=== PATIENT | female | born 1975 | race Caucasian/White ===

== ENCOUNTER 2018-07-25 18:24 | Emergency (ER) | payer OTHER ==
--- OUTSIDE RECORDS SUMMARY | 2018-07-25 18:26 | XMS REPORT | Continuity of Care Document ---
:1975 Author Organization Interface Problems Problem Status Onset Classification Date Comments Source Date Reported SEZIURE Active [facility] [place] Medications Medication Details Route Status Patient Ordering Order Source Instructions Provider Date Allergies, Adverse Reactions, Alerts Substance Category Reaction Severity Reaction Status Date Comments Source type Reported Immunizations Immunization Date Given Site Status Last Updated Comments Source Results Order Results Value Reference Date Interpretation Comments Source Name Range Brain wo Brain wo EXAM: CT BRAIN WITHOUT CONTRAST 01/25 - [facility] contrast contrast /2017 - [place] CT CT DATE: 01/25/2018 3:04 PM CDT Read by: Luca Rhodes MD Dictated Date/time: 01/25/18 16:05 Electronically Signed by: Luca Rhodes MD 01/25/18 16:07 FINAL REPORT INDICATION: - Seizure, pineal cyst. ADDITIONAL INFORMATION: . COMPARISON: None. TECHNIQUE: Routine axial CT images of the brain were obtained. IV contrast: None. CT imaging performed at this location utilizes radiation dose optimization techniques which include one or more of the following: -Automated exposure control -Adjustment of the mA and/or kV according to patient size -Use of iterative reconstruction technique CT Radiation Dose DLP 899.37 mGy-cm FINDINGS: Non-contrast images of the head demonstrate no edema, hemorrhage, mass lesion or other acute intracranial abnormality. Mild diffuse cerebral and and more pronounced cerebellar atrophy. Barakat- white matter distinction is preserved. The ventricles are normal. The basal cisterns and sulci are normal in size. The paranasal sinuses, orbits and mastoids are unremarkable. IMPRESSION: 1. No definite acute infarct or intracranial hemorrhage detected. Dedicated MRI brain recommended for further evaluation if this is a new onset seizure. 2. Mild diffuse cerebral and more pronounced cerebellar atrophy. If there is further concern for intracranial pathology or acute stroke, MRI of the brain may be performed for complete assessment. SL: [id number] Vital Signs Vital Sign Value Date Comments Source Encounters Location Location Encounter Encounter Reason Attending ADM DC Status Source Details Type Number For Provider Date Date Visit Outpatient [id number] SUZETTE 11/05 Active [facility] [place] Outpatient [id number] [place] 01/23 Active [facility] [place] Outpatient [id number] SU[place] 01/23 Active [facility] [place] Outpatient [id number] [place] 01/24 Active [facility] [place] Outpatient [id number] [place] 04/04 Active [facility] [place] Outpatient [id number] SU[place]ET[place] 08/08 Active [facility] [place] Procedures Procedure Code Date Perfomer Comments Source
--- OUTSIDE RECORDS SUMMARY | 2018-07-25 18:26 | XMS REPORT ---
:1975 Author [facility] Address [address] [place] [address] Dr. Cook [address] [place] [id number] Care Team Providers Name Role Phone Unavailable Unavailable Unavailable Problems This patient has no known problems. Allergies, Adverse Reactions, Alerts This patient has no known allergies or adverse reactions. Medications This patient has no known medications.
[2018-07-25] MEDS ORDERED: IPRATROPIUM BROM 0.5MG/2.5ML ONE (19:42)
[2018-07-25] MEDS ORDERED: ALBUTEROL 2.5 MG/3 ML NEB SOL ONE (19:42)
--- NOTE | 2018-07-25 20:10 | EDPHYS ---
Physician Documentation [facility] Name: Gauri Juares Age: 42 yrs Sex: Female : 1975 Arrival Date: 07/25/2018 Time: 18:32 Bed 7 Private MD: ED Physician Kj Perez HPI: 07/25 19:25 This 42 yrs old Female presents to ER via Ambulatory with complaints of cp Cough, Chest Pain, Sore Throat, Sinus Pain. 19:25 The patient or guardian reports cough, that is intermittent, with no sputum. cp 19:25 Onset: The symptoms/episode began/occurred this morning. Associated signs and symptoms: cp Pertinent positives: chest pain, with cough, diarrhea, sore throat, Pertinent negatives: fever, vomiting. 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 - Social history:: Smoking status: Patient uses tobacco products, smokes one-half pack cigarettes per day. - Ebola Screening: : Patient negative for fever greater than or equal to 101.5 degrees Fahrenheit, and additional compatible Ebola Virus Disease symptoms Patient denies exposure to infectious person Patient denies travel to an Ebola-affected area in the 21 days before illness onset No symptoms or risks identified at this time. ROS: 19:30 Constitutional: Positive for body aches, Negative for fever, poor PO intake. cp 19:30 Eyes: Negative for injury, pain, redness, and discharge. cp 19:30 ENT: Positive for sore throat, Negative for drainage from ear(s), ear pain, difficulty swallowing, difficulty handling secretions. 19:30 Cardiovascular: Positive for chest pain, with cough. 19:30 Respiratory: Positive for cough, with no reported sputum. 19:30 Abdomen/GI: Positive for diarrhea, Negative for abdominal pain, vomiting, constipation. 19:30 Skin: Negative for rash. 19:30 Neuro: Negative for altered mental status, headache. 19:30 All other systems are negative. Exam: 19:40 Constitutional: The patient appears in no acute distress, alert, awake, non-toxic, well cp developed, well nourished. 19:40 Head/Face: Normocephalic, atraumatic. cp 19:40 Eyes: Periorbital structures: appear normal, Conjunctiva: normal, no exudate, no injection, Lids and lashes: appear normal, bilaterally. 19:40 ENT: External ear(s): are unremarkable, Ear canal(s): are normal, clear, TM's: bulging, is not appreciated, bilaterally, Nose: is normal, Mouth: Lips: moist, Oral mucosa: moist, Posterior pharynx: Airway: no evidence of obstruction, patent, Tonsils: no enlargement, no exudate, swelling, is not appreciated, erythema, that is mild, exudate, is not appreciated. 19:40 Neck: ROM/movement: is normal, is supple, without pain, no range of motions limitations, no meningismus, Lymph nodes: lymphadenopathy is appreciated, anterior cervical nodes. 19:40 Chest/axilla: Inspection: normal, Palpation: is normal, no crepitus, no tenderness. 19:40 Cardiovascular: Rate: normal, Rhythm: regular. 19:40 Respiratory: the patient does not display signs of respiratory distress, Respirations: normal, no use of accessory muscles, no retractions, no splinting, no tachypnea, labored breathing, is not present, Breath sounds: decreased breath sounds, are not appreciated, stridor, is not appreciated, + upper airway congestion. wheezing: is not appreciated. 19:40 Abdomen/GI: Inspection: abdomen appears normal. 19:40 Skin: no rash present. Vital Signs: 18:48 BP 128 / 85; Pulse 83; Resp 16; Temp 98.7(O); Pulse Ox 98% on R/A; Weight 102.06 kg; iw Height 5 ft. 11 in. (180.34 cm) (R); Pain 8/10; 20:11 BP 118 / 59; Pulse 84; Resp 16; Temp 98.7; Pulse Ox 99% on R/A; ak1 21:06 BP 116 / 62; Pulse 81; Resp 18; Pulse Ox 100% on R/A; ao 18:48 Body Mass Index 31.38 (102.06 kg, 180.34 cm) iw MDM: 19:16 Patient medically screened. cp 20:00 Differential Diagnosis: Bronchitis Influenza Otitis Media Viral Syndrome Pneumonia cp Other strep throat. 20:09 Data reviewed: vital signs, nurses notes, lab test result(s), and as a result, I will cp discharge patient. 20:09 Counseling: I had a detailed discussion with the patient and/or guardian regarding: the cp historical points, exam findings, and any diagnostic results supporting the discharge/admit diagnosis, lab results, to return to the emergency department if symptoms worsen or persist or if there are any questions or concerns that arise at home. Response to treatment: the patient's symptoms have mildly improved after treatment, and as a result, I will discharge patient. Special discussion: I discussed with the patient/guardian that the patient's current presentation does not indicate dosing of antibiotics. They should follow-up with their primary care provider and return if the symptoms persist or progress. 07/25 19:22 Order name: Influenza Screen (a \T\ B); Complete Time: 20:06 07/25 20:06 Interpretation: Reviewed. 07/25 19:22 Order name: Strep; Complete Time: 20:06 07/25 20:06 Interpretation: Reviewed. 07/25 20:08 Order name: Throat Culture EDOH 07/25 20:15 Order name: XRAY Chest Pa And Lat (2 Views); Complete Time: 21:06 07/25 21:06 Interpretation: Report reviewed. cp Administered Medications: 19:38 Drug: AtroVENT Aerosol 0.5 mg Route: Inhalation; ao 19:39 Drug: Albuterol 2.5 mg Route: Inhalation; ao Disposition: 07/25/18 20:09 Discharged to Home. Impression: Acute upper respiratory infection, unspecified. - Condition is Stable. - Discharge Instructions: Upper Respiratory Infection, Adult, Viral Respiratory Infection, [id number]. - Prescriptions for Tessalon Perles 100 mg Oral Capsule - take 2 capsule by ORAL route every 8 hours As needed; 20 capsule. Medrol (Dhaval) 4 mg Oral Tablets, Dose Pack - take 1 tablet by ORAL route as directed - follow package instructions; 1 packet. Albuterol Sulfate 90 mcg/actuation - inhale 1-2 puff by INHALATION route every 4-6 hours; 1 Inhaler. - Medication Reconciliation Form, Thank You Letter, Antibiotic Education, Prescription Opioid Use form. - Follow up: Private Physician; When: 2 - 3 days; Reason: Worsening of condition. - Problem is new. - Symptoms have improved. Addendum: 07/29/2018 10:52 Co-signature as Attending Physician, Kj Perez MD I agree with the assessment and c celaya plan of care. Signatures: Dispatcher [employer] EDOH Kj Perez MD MD cha Williams, Irene, RN RN Kj Mcrae PA PA cp Jong Herrera, RN RN ao Corrections: (The following items were deleted from the chart) 07/25 21:19 20:09 07/25/2018 20:09 Discharged to Home. Impression: Acute upper respiratory ao infection, unspecified. Condition is Stable. Forms are Medication Reconciliation Form, Thank You Letter, Antibiotic Education, Prescription Opioid Use. Follow up: Private Physician; When: 2 - 3 days; Reason: Worsening of condition. Problem is new. Symptoms have improved. cp
--- NOTE | 2018-07-25 20:10 | ER ---
Nurse's Notes [facility] Name: Gauri Juares Age: 42 yrs Sex: Female : 1975 Arrival Date: 07/25/2018 Time: 18:32 Bed 7 Private MD: Diagnosis: Acute upper respiratory infection, unspecified Presentation: 07/25 18:45 Presenting complaint: Patient states: coughing, chest congestion, runny nose, sore iw throat this morning, fever chills, body aches, headache, also has diarrhea, no vomiting. Transition of care: patient was not received from another setting of care. Onset of symptoms was July 21, 2018. Risk Assessment: Do you want to hurt yourself or someone else? Patient reports no desire to harm self or others. Initial Sepsis Screen: Does the patient meet any 2 criteria? No. Patient's initial sepsis screen is negative. Does the patient have a suspected source of infection? No. Patient's initial sepsis screen is negative. Care prior to arrival: None. 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 - Social history:: Smoking status: Patient uses tobacco products, smokes one-half pack cigarettes per day. - Ebola Screening: : Patient negative for fever greater than or equal to 101.5 degrees Fahrenheit, and additional compatible Ebola Virus Disease symptoms Patient denies exposure to infectious person Patient denies travel to an Ebola-affected area in the 21 days before illness onset No symptoms or risks identified at this time. Screenin:42 Abuse screen: Denies threats or abuse. Denies injuries from another. Nutritional ao screening: No deficits noted. Tuberculosis screening: No symptoms or risk factors identified. Fall Risk None identified. Assessment: 19:25 General: Appears in no apparent distress. comfortable, Behavior is calm, cooperative, ao appropriate for age. Pain: Complains of pain in face Pain does not radiate. Pain currently is 5 out of 10 on a pain scale. Pain began 1 day ago. Neuro: Level of Consciousness is awake, alert, obeys commands, Oriented to person, place, time, situation, Appropriate for age Moves all extremities. Full function Speech is normal. Cardiovascular: Capillary refill < 3 seconds Patient's skin is warm and dry. Respiratory: Reports shortness of breath on exertion cough that is pain with cough Airway Respiratory effort is even, unlabored. GI: Abdomen is non-distended, obese. : No signs and/or symptoms were reported regarding the genitourinary system. EENT: No signs and/or symptoms were reported regarding the EENT system. Derm: Skin is intact, Skin temperature is warm. Musculoskeletal: Circulation, motion, and sensation intact. Range of motion:. 20:16 Reassessment: Pending DC. Hold until X-ray is clear. ao 21:06 Reassessment: Kj spoke to patient. Patient DC home. DC instructions given to ao patient. Pt agree with the POC and to follow up with PCP. Vital Signs: 18:48 BP 128 / 85; Pulse 83; Resp 16; Temp 98.7(O); Pulse Ox 98% on R/A; Weight 102.06 kg; iw Height 5 ft. 11 in. (180.34 cm) (R); Pain 8/10; 20:11 BP 118 / 59; Pulse 84; Resp 16; Temp 98.7; Pulse Ox 99% on R/A; ak1 21:06 BP 116 / 62; Pulse 81; Resp 18; Pulse Ox 100% on R/A; ao 18:48 Body Mass Index 31.38 (102.06 kg, 180.34 cm) iw ED Course: 18:32 Patient arrived in ED. rg4 18:47 Triage completed. iw 18:48 Arm band placed on. iw 18:59 Kj Pastrana PA is PHCP. cp 18:59 Dustin Price MD is Attending Physician. cp 19:02 Jong Herrera, RN is Primary Nurse. ao 19:15 Kj Perez MD is Attending Physician. cp 19:43 Patient has correct armband on for positive identification. Pulse ox on. NIBP on. ao 19:43 Patient maintains SpO2 saturation greater than 95% on room air. ao 20:47 XRAY Chest Pa And Lat (2 Views) In Process Unspecified. EDMS 21:17 No provider procedures requiring assistance completed. Patient did not have IV access ao during this emergency room visit. Administered Medications: 19:38 Drug: AtroVENT Aerosol 0.5 mg Route: Inhalation; ao 19:39 Drug: Albuterol 2.5 mg Route: Inhalation; ao Outcome: 20:09 Discharge ordered by MD. cp 21:18 Discharged to home ambulatory. ao 21:18 Condition: stable 21:18 Discharge instructions given to patient, Instructed on discharge instructions, follow up and referral plans. Demonstrated understanding of instructions, follow-up care, Prescriptions given X 4. 21:19 Patient left the ED. ao Signatures: Dispatcher [employer] EDMeggan Chester, RN Ana Maria Lehman RN RN ak1 Kj Pastrana PA PA cp Ortiz, Alex RN RN Radha De Oliveira rg4
--- NOTE | 2018-07-25 20:55 | RAD REPORT ---
EXAM DESCRIPTION: Mary Waldron (2 Views)07/25/2018 8:47 pm CLINICAL HISTORY: Cough COMPARISON: May 2018 FINDINGS: The lungs appear clear of acute infiltrate. The heart is normal size IMPRESSION: No acute abnormalities displayed
[2018-07-25 21:25] VITALS: TEMP 98.7
[2018-07-25 21:27] VITALS: BP 116/62; O2SAT 100
== END 2018-07-25 21:19 | disposition home or self-care (01) ==
LOC: ER 18:24
DX: J06.9 Acute upper respiratory infection, unspecified (principal); F32.9 Major depressive disorder, single episode, unspecified; Z91.040 Latex allergy status
CPT/HCPCS: 71046; 87070; 87081; 87804; 99284

== ENCOUNTER 2018-09-27 18:03 | Emergency (ER) | payer OTHER ==
--- OUTSIDE RECORDS SUMMARY | 2018-09-27 18:07 | XMS REPORT | Summary of Care ---
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 Pulmonary embolism(Confirmed) Resolved Convulsion(Confirmed) Active Syncope(Confirmed) Active Allergies, Adverse Reactions, Alerts Substance Reaction Severity Status aspirin Active Latex Active Medications gabapentin 300 mg oral capsule See Instructions, 3 CAPSULES 3 TIMES A DAY, # 60 cap, 0 Refill(s), Pharmacy: [id number] Start Date: 09/01/18 Stop Date: 09/03/18 Status: Discontinued Results No data available for this section Immunizations No data available for this section Procedures Procedure Date Related Diagnosis Body Site Status Cholecystectomy Completed Fusion procedure1 Completed Gastric bypass Completed 1CERVICAL FUSION 2004 Social History Social History Type Response Alcohol Current, Type Wine. Frequency: 1-2 times per month. Smoking Status Current every day smoker; Type: Cigarettes; Exposure to Tobacco Smoke None; Cigarette Smoking Last 365 Days Yes; Reg Smoking Cessation Counseling No; Tobacco use per day: 1; Number of years: 5; 1 entered on: 09/03/18 1SMOKES 1/2 PPD Assessment and Plan No data available for this section
--- OUTSIDE RECORDS SUMMARY | 2018-09-27 18:07 | XMS REPORT | Continuity of Care Document ---
:1975 Author Organization [employer] [facility] Care Team Providers Name Role Phone [employer] [facility] Unavailable Unavailable Problems Problem Status Onset Classification Date Comments Source Date Reported Other 02/01/20 08/14/2018 [facility] disturbances of 18 skin sensation Dysesthesia 01/26/20 08/14/2018 [facility] 18 SEZIURE Active 01/26/20 [place] [id number] [place] Anemia Active Problem 09/06/2018 [facility] Anxiety Resolved Problem 09/06/2018 [facility] Intractable Active Problem 09/06/2018 [facility] chronic migraine [facility], without aura [place] 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 [facility] Pulmonary Resolved Problem 09/06/2018 [facility] embolism [facility] Convulsion Active Problem 09/06/2018 [facility] Syncope Active Problem 09/06/2018 [facility] Unspecified 08/14/2018 [facility] convulsions Anxiety 08/14/2018 [facility] disorder, unspecified Nicotine 08/14/2018 [facility] dependence, cigarettes, uncomplicated Personal history 08/14/2018 [facility] of pulmonary embolism 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 Insomnia, 08/14/2018 [facility] unspecified Anemia, 08/14/2018 [facility] unspecified Medications Medication Details Route Status Patient Ordering Order Source Instructions Provider Date gabapentin 300 See Active [facility] Oral Instruction 019 Neuro Capsule s, 3 CAPSULES 3 TIMES A DAY, # 60 cap, 3 Refill(s), [facility]: [id number] propranolol 40 40 mg=1 Active [facility] mg oral tablet tab, PO, 019 Neuro BID, # 60 tab, 3 Refill(s), [facility]acy: [id number] gabapentin 300 See No Longer [facility] Oral Instruction Active 019 Neuro Capsule s, 3 CAPSULES 3 TIMES A DAY, # 60 cap, 0 Refill(s), Pharmacy: [id number] gabapentin 300 See No Longer [facility] MG Oral Instruction Active 019 Neuro Capsule s, 3 CAPSULES 3 TIMES A DAY, # 270 cap, 0 Refill(s), Pharmacy: [id number] Lorazepam 2 MG 2 mg=1 tab, No Longer MH Oral Tablet PO, Active 018 [place] [Ativan] Bedtime, X 2 day, # 2 tab, 0 Refill(s) gabapentin 300 See No Longer [facility] MG Oral Instruction Active 018 Neuro Capsule s, 3 CAPSULES 3 TIMES A DAY, # 270 cap, 2 Refill(s), Pharmacy: [id number] quetiapine 25 25 mg=1 Active [facility] MG Oral Tablet tab, PO, 018 Neuro [Seroquel] Bedtime, 0 Refill(s) 24 HR See Active [facility] venlafaxine Instruction 018 Neuro 150 MG s, 75mg cap Extended PO Daily, 0 Release Refill(s) Capsule [Effexor] Allergies, Adverse Reactions, Alerts Substance Category Reaction Severity Reaction Status Date Comments Source type Reported aspirin Assertion Drug Active [facility] allergy Neuro Latex Assertion Drug Active [facility] allergy Neuro Immunizations No Data Provided for This Section Results Order Name Results Value Reference Date Interpretation Comments Source Range DRUG SCREEN U Cocaine Negative Negative 01/25 MH Scr *NA* [place] (01/25/18 3:19 PM) DRUG SCREEN U Cannab Scr Negative Negative 01/25 MH *NA* [place] (01/25/18 3:19 PM) DRUG SCREEN U Benzodiaz Negative Negative 01/25 MH Scr *NA* [place] (01/25/18 3:19 PM) DRUG SCREEN U Opiate Scr Negative Negative 01/25 MH *NA* [place] (01/25/18 3:19 PM) DRUG SCREEN U Negative Negative 01/25 MH Phencyclidin *NA* [place] e Scr (01/25/18 3:19 PM) DRUG SCREEN U Renee Scr Negative Negative 01/25 MH *NA* [place] (01/25/18 3:19 PM) DRUG SCREEN U Amph Scr Negative Negative 01/25 MH *NA* [place] (01/25/18 3:19 PM) DRUG SCREEN UDS Note See Note 01/25 (01/25/18 3:19 PM) [place] ELECTROLYTE AGAP 12.4 10.0 - 01/25 S 20.0 [place] ELECTROLYTE Globulin 3.7 2.7 - 4.2 01/25 [place] ELECTROLYTE A/G Ratio 1.0 0.7 - 1.6 01/25 S [place] ELECTROLYTE B/C Ratio 12 6 - 25 01/25 S [place] ELECTROLYTE Bili Total 0.3 0.2 - 1.3 01/25 [place] ELECTROLYTE AST 25 0 - 37 01/25 [place] ELECTROLYTE Alk Phos 137 39 - 136 01/25 S [place] ELECTROLYTE eGFR 89 01/25 Comment: The [place] eGFR is calculated using the CKD-EPI formula. In most young, healthy individuals the eGFR will be >90 mL/min/1.73m2 . The eGFR declines with age. An eGFR of 60-89 may be normal in some populations, particularly the elderly, for whom the CKD-EPI formula has not been extensively validated. Use of the eGFR is not recommended in the following populations:< br/>
Lucy viduals with unstable creatinine concentration s, including patients and those with serious co-morbid conditions.<b r/>
Patie nts with extremes in muscle mass or diet.

The data above are obtained from the National Kidney Disease Education Program (NKDEP) which additionally recommends that when the eGFR is used in patients with extremes of body mass index for purposes of drug dosing, the eGFR should be multiplied by the estimated BMI. ELECTROLYTE ALT 23 0 - 65 01/25 [place] ELECTROLYTE Total 7.3 6.4 - 8.4 01/25 S Protein [place] ELECTROLYTE Calcium Lvl 8.3 8.5 - 10.5 01/25 [place] ELECTROLYTE Albumin Lvl 3.6 3.5 - 5.0 01/25 [place] ELECTROLYTE CO2 25 24 - 32 01/25 S [place] ELECTROLYTE Chloride Lvl 106 95 - 109 01/25 S [place] ELECTROLYTE Creatinine 0.81 0.50 - 01/25 S Lvl 1.40 [place] ELECTROLYTE BUN 10 7 - 22 01/25 MH S [place] ELECTROLYTE Potassium 4.4 3.5 - 5.1 01/25 MH S Lvl [place] ELECTROLYTE Sodium Lvl 139 135 - 145 01/25 MH S [place] ELECTROLYTE Glucose Lvl 91 70 - 99 01/25 S [place] HEMATOLOGY Monocytes # 0.8 0.0 - 0.8 01/25 [place] HEMATOLOGY Lymphocytes 1.8 1.0 - 5.5 01/25 MH # [place] HEMATOLOGY Basophils # 0.1 0.0 - 0.2 01/25 [place] HEMATOLOGY Eosinophils 0.2 0.0 - 0.5 01/25 MH # [place] HEMATOLOGY Basophils 0.4 0.0 - 1.0 01/25 [place] HEMATOLOGY Eosinophils 1.2 0.0 - 4.0 01/25 [place] HEMATOLOGY Neutrophils 10.1 1.5 - 8.1 01/25 MH # /2017 [place] HEMATOLOGY Lymphocytes 13.9 20.0 - 01/25 MH 40.0 [place] HEMATOLOGY Segs 78.6 45.0 - 01/25 MH 75.0 [place] HEMATOLOGY Monocytes 5.9 2.0 - 12.0 01/25 [place] HEMATOLOGY MPV 8.1 7.4 - 10.4 01/25 [place] HEMATOLOGY Platelet 269 133 - 450 01/25 [place] HEMATOLOGY MCH 27.1 27.0 - 01/25 MH 31.0 [place] HEMATOLOGY MCHC 32.7 32.0 - 01/25 MH 36.0 [place] HEMATOLOGY RDW 17.1 11.5 - 01/25 MH 14. [place] HEMATOLOGY WBC 12.8 3.7 - 10.4 01/25 [place] HEMATOLOGY RBC 4.24 4.20 - 01/25 MH 5.40 [place] HEMATOLOGY Hgb 11.5 12.0 - 01/25 MH 16.0 [place] HEMATOLOGY Hct 35.1 36.0 - 01/25 MH 48.0 [place] HEMATOLOGY MCV 82.7 80.0 - 01/25 MH 98.0 [place] URINE AND UA Spec Grav 1.006 <=1.030 01/25 MH STOOL [place] URINE AND UA Turbidity Clear Clear 01/25 [facility]OOL (01/25/18 3:19 PM) [place] URINE AND UA Color Yellow Yellow 01/25 STO[facility] *NA* /2017 [place] (01/25/18 3:19 PM) URINE AND UA <=1.0 0.1 - 1.0 01/25 STOOL Urobilinogen mg/dL [place] URINE AND UA Nitrite Negative Negative 01/25 STO[facility] (01/25/18 3:19 PM) [place] URINE AND UA Sq Epi Few /LPF Few /LPF 01/25 STOOL [place] URINE AND UA Leuk Est Negative Negative 01/25 STO[facility] (01/25/18 3:19 PM) [place] URINE AND UA Blood Negative Negative 01/25 STOOL (01/25/18 3:19 PM) [place] URINE AND UA Protein Negative Negative 01/25 STOOL (01/25/18 3:19 PM) [place] URINE AND UA Glucose Negative Negative 01/25 STOOL *NA* /2017 [place] (01/25/18 3:19 PM) URINE AND UA Bili Negative Negative 01/25 STOOL *NA* /2017 [place] (01/25/18 3:19 PM) URINE AND UA pH 7.0 5.0 - 8.0 01/25 STOOL [place] URINE AND UA Ketones Negative Negative 01/25 STO[facility] *NA* /2017 [place] (01/25/18 3:19 PM) URINE AND UA WBC <1 0 - 5 01/25 [place] URINE AND UA Hyal Cast 1 0 - 2 01/25 [place] URINE AND UA RBC 1 0 - 2 01/25 STOOL [place] URINE AND UA Bacteria Occasional None Seen 01/25 STOOL /HPF /HPF /2017 [place] URINE CHEM U Preg Negative Negative 01/25 (01/25/18 3:19 PM) [place] Pathology Reports No Data Provided for This Section Diagnostic Reports Report Value Date Source Brain wo contrast CT EXAM: CT BRAIN WITHOUT CONTRAST 01/25/2018 [facility] DATE: 01/25/2018 3:04 PM CDT INDICATION: - Seizure, pineal cyst. ADDITIONAL INFORMATION: [...] cerebral and and more pronounced cerebellar atrophy. Barakat-white matter distinction is preserved. The ventricles are [...] may be performed for complete assessment. SL: KIERAN Consultation Notes No Data Provided for This Section Discharge Summaries No Data Provided for This Section History and Physicals No Data Provided for This Section Vital Signs Vital Sign Value Date Comments Source BMI Calculated 33.36 09/03/2018 [facility] Weight 105.455 09/03/2018 [facility] Height 177.8 cm 09/03/2018 [facility] Heart Rate 101 09/03/2018 [facility] Neuro Respitory Rate 16 09/03/2018 [facility] Systolic (mm Hg) 122 09/03/2018 [facility] Diastolic (mm Hg) 77 09/03/2018 [facility] Systolic (mm Hg) 137 01/25/2018 [facility] Diastolic (mm Hg) 91 01/25/2018 [facility] Respitory Rate 16 01/25/2018 [facility] Heart Rate 98 01/25/2018 [facility] Temperature Oral (F) 98.1 F 01/25/2018 [facility] Heart Rate 101 01/25/2018 [facility] Systolic (mm Hg) 141 01/25/2018 [facility] Diastolic (mm Hg) 86 01/25/2018 [facility] Respitory Rate 16 01/25/2018 [facility] Respitory Rate 18 01/25/2018 [facility] Heart Rate 105 01/25/2018 [facility] Systolic (mm Hg) 129 01/25/2018 [facility] Diastolic (mm Hg) 87 01/25/2018 [facility] Height 182.88 cm 01/25/2018 [facility] Weight 109.091 01/25/2018 [facility] Temperature Oral (F) 98 F 01/25/2018 [facility] BMI Calculated 32.62 01/25/2018 [facility] BMI Calculated 32.01 01/23/2018 [facility] Neuro Weight 104.091 01/23/2018 [facility] Neuro Height 180.34 cm 01/23/2018 [facility] Neuro Heart Rate 116 01/23/2018 [facility] Neuro Respitory Rate 16 01/23/2018 [facility] Neuro Systolic (mm Hg) 118 01/23/2018 [facility] Neuro Diastolic (mm Hg) 86 01/23/2018 [facility] Neuro Encounters Location Location Encounter Encounter Reason Attending ADM DC Status Source Details Type Number For Provider Date Date Visit Outpatient [id number] SUZETTE 11/05 [facility] [place] Outpatient [id number] SUZETTE 01/[address] [facility] [place] Outpatient [id number] SUZETTE 01/[address] [facility] [place] [facility] Outpatient [id number] Suzette 01/23 01/24 [facility] Neurology [facility] [place] [facility] Ambulatory [id number] Suzette 01/23 01/23 [facility] Neurology Pre-Reg [facility] [place] Outpatient [id number] SUZETTE 01/24 [facility] [place] [facility] Outpatient [id number] Suzette 01/24 01/25 [facility] Neurology [facility] [place] [facility] [id number] [facility] 01/25 01/25 [facility] /2017 [facility] MNA Outside [id number] 02/05 02/07 [facility] Neurology Medical /2017 Neuro [place] Records Outpatient [id number] SUZETTE 04/04 Active [facility] [place] Outpatient [id number] SUZETTE 08/08 Active [facility] [place] [facility] Ambulatory [id number] Suzette 08/08 08/08 [facility] Neurology Pre-Reg [facility] [place] MNA Outside [id number] 08/27 08/29 [facility] Neurology Medical /2018 [facility] [place] Records MNA Outside [id number] 09/01 09/03 [facility] Neurology Medical /2018 [facility] [place] Records Outpatient [id number] Suz[place] 09/03 Active [facility] [place] [facility] Outpatient [id number] Suzette 09/03 09/[address] [address] [facility] Neuro [place] Outpatient [id number] [place] 01/07 Active [facility] [place] Procedures Procedure Code Date Perfomer Comments Source Cholecystectomy 62088922 [facility] Fusion [id number] CERVICAL [facility] procedure<sup>1</sup> FUSION 2005 Gastric bypass [id number] [facility] Cholecystectomy [id number] MH [place] Fusion [id number] CERVICAL MH [place] procedure<sup>1</sup> FUSION 2004 Gastric bypass [id number] [place] Assessment and Plan No Data Provided for This Section Plan of Care No Data Provided for This Section Social History Social History Date Source Social History TypeResponse 02/02/2015 [facility] Alcohol Current, Type Wine. Frequency: 1-2 times per month. Smoking Status Current every day smoker; Type: Cigarettes; Exposure to Tobacco Smoke None; Cigarette Smoking Last 365 Days Yes; Reg Smoking Cessation Counseling No; Tobacco use per day: 1; Number of years: 5; 1 entered on: 09/03/18 1SMOKES 1/2 PPD Social History TypeResponse 02/02/2015 [facility] Alcohol Current, Type Wine. Frequency: 1-2 times per month. Smoking Status Current every day smoker; Type: Cigarettes; Exposure to Tobacco Smoke Unable to obtain; Cigarette Smoking Last 365 Days Yes; Reg Smoking Cessation Counseling No entered on: 04/04/18 Family History No Data Provided for This Section Advance Directives No Data Provided for This Section Functional Status No Data Provided for This Section
--- OUTSIDE RECORDS SUMMARY | 2018-09-27 18:07 | XMS REPORT | Summary of Care ---
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
--- OUTSIDE RECORDS SUMMARY | 2018-09-27 18:07 | XMS REPORT | Summary of Care ---
:1975 Author Organization [facility] Neurology [place] Address [address] [place] [address]- phone Encounter HQ Encntr_alias(FIN) [id number] Date(s): 02/05/18 - 02/06/18 [facility] [address] [place] [address]- [phone] Vital Signs No data available for this [...] DAY, # 270 cap, 0 Refill(s), Pharmacy: [id number] Start Date: 04/02/18 Stop Date: 04/30/18 Status: Completed Results No data available for this section [...]
--- OUTSIDE RECORDS SUMMARY | 2018-09-27 18:07 | XMS REPORT | Summary of Care ---
:1975 Author Organization [facility] Neurology [place] Address [address] [place] [address]- Encounter HQ Leila(GIBOSN) [id number] Date(s): 09/03/18 - 09/03/18 [facility] [address] [place] [address]- [phone] Discharge Disposition: Home or Self Care Attending Physician: Jaun Zamudio MD Referring Physician: Jaun Zamudio MD Vital Signs Most recent to oldest [Reference Range]: 1 Height 177.8 cm (09/03/18 8:52 AM) Blood Pressure [90-140/60-90 mmHg] 122/77 mmHg (09/03/18 8:52 AM) Respiratory Rate [14-20 BRMIN] 16 BRMIN (09/03/18 8:52 AM) Peripheral Pulse Rate [60-100 bpm] 101 bpm *HI* (09/03/18 8:52 AM) Weight 105.455 kg (09/03/18 8:52 AM) Body Mass Index 33.36 m2 (09/03/18 8:52 AM) Problem List Condition Effective Dates Status Health Status Informant Anemia(Confirmed) Active Anxiety(Confirmed) Resolved 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 Pulmonary embolism(Confirmed) Resolved Convulsion(Confirmed) Active Syncope(Confirmed) Active Allergies, Adverse Reactions, Alerts Substance Reaction Severity Status aspirin Active Latex Active Medications gabapentin 300 mg oral capsule See Instructions, 3 CAPSULES 3 TIMES A DAY, # 60 cap, 3 Refill(s), Pharmacy: [id number] Start Date: 09/03/18 Status: Orderedpropranolol 40 mg oral tablet 40 mg=1 tab, PO, BID, # 60 tab, 3 Refill(s), Pharmacy: [id number] Start Date: 09/03/18 Stop Date: 01/01/19 Status: Ordered Results No data available for this section [...]
--- OUTSIDE RECORDS SUMMARY | 2018-09-27 18:08 | XMS REPORT ---
:1975 Author [facility] Address [address] [place] [address] Dr. Cook [address] [place] [address] Care Team Providers Name Role Phone Unavailable Unavailable Unavailable Problems This patient has no known problems. Allergies, Adverse Reactions, Alerts This patient has no known allergies or adverse reactions. Medications This patient has no known medications.
--- OUTSIDE RECORDS SUMMARY | 2018-09-27 18:08 | XMS REPORT | Summary of Care ---
:1975 Author Organization [facility] Neurology [place] Address [address] [place] [address]- phone Encounter HQ Encntr_alias(FIN) [id number] Date(s): 08/08/18 - 08/08/18 [facility] [address] [place] [address]- [phone] Attending Physician: Jaun Zamudio MD Referring Physician: Jaun Zamudio MD Vital Signs No data available for this [...]
--- OUTSIDE RECORDS SUMMARY | 2018-09-27 18:08 | XMS REPORT | Summary of Care ---
:1975 Author Organization [facility] Neurology [place] Address [address] [place] [address]- phone Encounter HQ Encntr_aliefrem(FIN) [id number] Date(s): 01/24/18 - 01/24/18 [facility] [address] [place] [address]- [phone] Discharge Disposition: Home or Self Care Attending [...]
--- OUTSIDE RECORDS SUMMARY | 2018-09-27 18:08 | XMS REPORT | Summary of Care ---
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 (Final) - Insomnia, unspecified (Final) - Anemia, unspecified (Final) - Discharge Disposition: Home or Self Care Attending Physician: Asim Gonzalez MD Vital Signs Most recent to oldest 1 2 3 [Reference Range]: Height 182.88 cm (01/25/18 1:51 PM) Temperature Oral [96.4-99.1 98.1 DegF 98 DegF DegF] (01/25/18 4:52 PM) (01/25/18 1:51 PM) Blood Pressure [90-140/60-90 137/91 mmHg 141/86 mmHg 129/87 mmHg mmHg] (01/25/18 4:52 PM) *HI* (01/25/18 1:51 PM) (01/25/18 3:19 PM) Respiratory Rate [14-20 16 BRMIN 16 BRMIN 18 BRMIN BRMIN] (01/25/18 4:52 PM) (01/25/18 3:19 PM) (01/25/18 1:51 PM) Peripheral Pulse Rate 98 bpm 101 bpm 105 bpm [60-100 bpm] (01/25/18 4:52 PM) *HI* *HI* (01/25/18 3:19 PM) (01/25/18 1:51 PM) Weight 109.091 kg (01/25/18 1:51 PM) Body Mass Index 32.62 m2 (01/25/18 1:51 PM) Problem List Condition Effective Dates Status Health Status Informant Anemia(Confirmed) Active Anxiety(Confirmed) Resolved 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 Pulmonary embolism(Confirmed) Resolved Convulsion(Confirmed) Active Syncope(Confirmed) Active Allergies, Adverse Reactions, Alerts Substance Reaction Severity Status aspirin Active Latex Active Medications Ativan 2 mg oral tablet 2 mg=1 tab, PO, Bedtime, X 2 day, # 2 tab, 0 Refill(s) Start Date: 01/25/18 Stop Date: 01/27/18 Status: Completed Results Most recent to oldest [Reference Range]: 1 Neutrophils # [1.5-8.1 K/CMM] 10.1 K/CMM *HI* (01/25/18 3:19 PM) Lymphocytes # [1.0-5.5 K/CMM] 1.8 K/CMM (01/25/18 3:19 PM) Monocytes # [0.0-0.8 K/CMM] 0.8 K/CMM (01/25/18 3:19 PM) Eosinophils # [0.0-0.5 K/CMM] 0.2 K/CMM (01/25/18 3:19 PM) Basophils # [0.0-0.2 K/CMM] 0.1 K/CMM (01/25/18 3:19 PM) eGFR 89 mL/min/1.73m2 1 *NA* (01/25/18 3:19 PM) UDS Note See Note (01/25/18 3:19 PM) A/G Ratio [0.7-1.6] 1.0 (01/25/18 3:19 PM) Albumin Lvl [3.5-5.0 g/dL] 3.6 g/dL (01/25/18 3:19 PM) Alk Phos [39-136 unit/L] 137 unit/L *HI* (01/25/18 3:19 PM) ALT [0-65 unit/L] 23 unit/L (01/25/18 3:19 PM) U Amph Scr [Negative] Negative *NA* (01/25/18 3: PM) AGAP [10.0-20.0 mEq/L] 12.4 mEq/L (01/25/18 3:19 PM) AST [0-37 unit/L] 25 unit/L (01/25/18 3: PM) B/C Ratio [6-25] 12 (01/25/18 3:19 PM) U Renee Scr [Negative] Negative *NA* (01/25/18 3: PM) Basophils [0.0-1.0 %] 0.4 % (01/25/18 3: PM) U Benzodiaz Scr [Negative] Negative *NA* (01/25/18 3: PM) BUN [7-22 mg/dL] 10 mg/dL (01/25/18 3: PM) Calcium Lvl [8.5-10.5 mg/dL] 8.3 mg/dL *LOW* (01/25/18 3: PM) Chloride Lvl [95-109 mEq/L] 106 mEq/L (01/25/18 3: PM) CO2 [24-32 mEq/L] 25 mEq/L (01/25/18 3: PM) U Cocaine Scr [Negative] Negative *NA* (01/25/18 3: PM) Creatinine Lvl [0.50-1.40 mg/dL] 0.81 mg/dL (01/25/18 3: PM) Eosinophils [0.0-4.0 %] 1.2 % (01/25/18 3: PM) Globulin [2.7-4.2 g/dL] 3.7 g/dL (01/25/18 3: PM) Glucose Lvl [70-99 mg/dL] 91 mg/dL (01/25/18 3: PM) Hct [36.0-48.0 %] 35.1 % *LOW* (01/25/18 3: PM) Hgb [12.0-16.0 g/dL] 11.5 g/dL *LOW* (01/25/18 3:19 PM) Potassium Lvl [3.5-5.1 mEq/L] 4.4 mEq/L (01/25/18 3:19 PM) Lymphocytes [20.0-40.0 %] 13.9 % *LOW* (01/25/18 3: PM) MCH [27.0-31.0 pg] 27.1 pg (01/25/18 3: PM) MCHC [32.0-36.0 g/dL] 32.7 g/dL (01/25/18 3: PM) MCV [80.0-98.0 fL] 82.7 fL (01/25/18 3: PM) Monocytes [2.0-12.0 %] 5.9 % (01/25/18: PM) MPV [7.4-10.4 fL] 8.1 fL (01/25/18 3: PM) Sodium Lvl [135-145 mEq/L] 139 mEq/L (01/25/18 3: PM) U Opiate Scr [Negative] Negative *NA* (01/25/18: PM) U Phencyclidine Scr [Negative] Negative *NA* (01/25/18 3: PM) Platelet [133-450 K/CMM] 269 K/CMM (01/25/18 3: PM) Segs [45.0-75.0 %] 78.6 % *HI* (01/25/18 3: PM) Total Protein [6.4-8.4 g/dL] 7.3 g/dL (01/25/18 3: PM) RBC [4.20-5.40 M/CMM] 4.24 M/CMM (01/25/18 3:19 PM) RDW [11.5-14.5 %] 17.1 % *HI* (01/25/18 3: PM) Bili Total [0.2-1.3 mg/dL] 0.3 mg/dL (01/25/18 3: PM) U Cannab Scr [Negative] Negative *NA* (01/25/18 3: PM) UA Bacteria [None Seen /HPF] Occasional /HPF *NA* (01/25/18 3:19 PM) UA Bili [Negative] Negative *NA* (01/25/18 3:19 PM) UA Blood [Negative] Negative (01/25/18 3:19 PM) UA Color [Yellow] Yellow *NA* (01/25/18 3:19 PM) UA Glucose [Negative] Negative *NA* (01/25/18 3:19 PM) UA Hyal Cast [0-2 /LPF] 1 /LPF (01/25/18 3:19 PM) UA Ketones [Negative] Negative *NA* (01/25/18 3:19 PM) UA Leuk Est [Negative] Negative (01/25/18 3:19 PM) UA Nitrite [Negative] Negative (01/25/18 3:19 PM) UA pH [5.0-8.0] 7.0 (01/25/18 3:19 PM) U Preg [Negative] Negative (01/25/18 3:19 PM) UA Protein [Negative] Negative (01/25/18 3:19 PM) UA RBC [0-2 /HPF] 1 /HPF (01/25/18 3:19 PM) UA Spec Grav [<=1.030] 1.006 (01/25/18 3:19 PM) UA Sq Epi [Few /LPF] Few /LPF *NA* (01/25/18 3:19 PM) UA Turbidity [Clear] Clear (01/25/18 3:19 PM) UA Urobilinogen [0.1-1.0 mg/dL] <=1.0 mg/dL *NA* (01/25/18 3:19 PM) UA WBC [0-5 /HPF] <1 /HPF (01/25/18 3:19 PM) WBC [3.7-10.4 K/CMM] 12.8 K/CMM *HI* (01/25/18 3:19 PM) 1Result Comment: The eGFR is calculated using the CKD-EPI formula. In most young , healthy individualsthe eGFR will be >90 mL/min/1.73m2. The eGFR declines with age. An eGFR of 60-89 may be normal insome populations, particularly the elderly, for whom the CKD-EPI formula has not been extensively validated. Use of the eGFR is not recommended in the following populations: Individuals with unstable creatinine concentrations, including patients and those with serious co-morbid conditions. Patients with extremes in muscle mass or diet. The data above are obtained from the National Kidney Disease Education Program ( NKDEP) which additionally recommends that when the eGFR is used in patients with extremes of body mass index for purposesof drug dosing, the eGFR should be multiplied by the estimated BMI. Immunizations No data available for this section [...]
--- OUTSIDE RECORDS SUMMARY | 2018-09-27 18:08 | XMS REPORT | Summary of Care ---
:1975 Author Organization [facility] [place] Address [address] [place] [address]- Encounter HQ Scott_yuan(FIN) [id number] Date(s): 01/23/18 - 01/23/18 [facility] [address] [place] [address]- [phone] Discharge Disposition: Home or Self Care Attending Physician: Jaun Zamudio MD Referring Physician: Jaun Zamudio MD Vital Signs Most recent to oldest [Reference Range]: 1 Height 180.34 cm (01/23/18 10:57 AM) Blood Pressure [90-140/60-90 mmHg] 118/86 mmHg (01/23/18 10:57 AM) Respiratory Rate [14-20 BRMIN] 16 BRMIN (01/23/18 10:57 AM) Peripheral Pulse Rate [60-100 bpm] 116 bpm *HI* (01/23/18 10:57 AM) Weight 104.091 kg (01/23/18 10:57 AM) Body Mass Index 32.01 m2 (01/23/18 10:57 AM) Problem List Condition Effective Dates Status Health Status Informant Anemia(Confirmed) Active Anxiety(Confirmed) Resolved 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 Pulmonary embolism(Confirmed) Resolved Convulsion(Confirmed) Active Syncope(Confirmed) Active Allergies, Adverse Reactions, Alerts Substance Reaction Severity Status aspirin Active Latex Active Medications Effexor XR 150 mg oral capsule, extended release See Instructions, 75mg cap PO Daily, 0 Refill(s) Start Date: 01/23/18 Status: Orderedgabapentin 300 mg oral capsule See Instructions, 3 CAPSULES 3 TIMES A DAY, # 270 cap, 2 Refill(s), Pharmacy: [facility]/pharmacy #[id number] Start Date: 01/23/18 Stop Date: 04/02/18 Status: CompletedSEROquel 25 mg oral tablet 25 mg=1 tab, PO, Bedtime, 0 Refill(s) Start Date: 01/23/18 Status: Ordered Results No data available for [...]
--- OUTSIDE RECORDS SUMMARY | 2018-09-27 18:08 | XMS REPORT | Summary of Care ---
:1975 Author Organization [facility] [place] Address [address] [place] [address]- phone Encounter HQ Encntr_alias(FIN) [id number] Date(s): 01/23/18 - 01/23/18 [facility] [address] [place] [address]- [phone] Attending Physician: Jaun Zamudio MD Referring Physician: [...]
[2018-09-27] MEDS ORDERED: HYDROCODONE/APAP 5/325 MG TAB ONE (18:52)
--- NOTE | 2018-09-27 18:55 | RAD REPORT ---
EXAM DESCRIPTION: RAD - Foot Left 3 View - 09/27/2018 6:46 pm CLINICAL HISTORY: Left Foot pain FINDINGS: No fracture or dislocation is seen. Hallux valgus deformity
--- NOTE | 2018-09-27 19:19 | RAD REPORT ---
EXAM DESCRIPTION: CT - Head C Spine Mpr Wo Con - 09/27/2018 7:05 pm CLINICAL HISTORY: Headache and numbness COMPARISON: None. TECHNIQUE: Computed axial tomography of the head and cervical spine was obtained. Sagittal and coronal reconstruction was performed. All CT scans are performed using dose optimization technique as appropriate and may include automated exposure control or mA/KV adjustment according to patient size. FINDINGS: An intracranial bleed is not seen. The ventricles are normal in caliber. An extra-axial fl uid collection is not noted.Fluid within the visualized sinuses and mastoids is not seen A cervical fracture is not visualized. No dislocation is noted. Anterior fusion C5 and C6 An obvious disc herniation is not seen. Significant spinal stenosis is not noted IMPRESSION: No acute intracranial abnormality is seen. A cervical fracture is not visualized. If the patient continues to have symptoms to suggest intracra nial /spinal cord/ spinal canal pathology then MRI would be recommended
--- NOTE | 2018-09-27 19:48 | ER ---
Nurse's Notes [facility] Name: Gauri Juares Age: 42 yrs Sex: Female : 1975 Arrival Date: 09/27/2018 Time: 18:04 Bed 7 Private MD: Diagnosis: Other sprain of foot;Paresthesia of skin;Headache Presentation: 09/27 18:09 Presenting complaint: Patient states: "My left ankle I can barely walk on it. I fell on aj1 it a long time ago, but now out of nowhere I can't put any pressure on it, its extremely painful and then my neck I have 4 screws in my neck and the cadaver bone has collapsed and now I feel like someone is taking a nail and hammering in the back of my neck" Reports that she has been having this pain for the past 3 to 4 days. Patient also reports numbness numbness to left side of face and the back of her head, which has also been there for the past 3 to 4 days. Transition of care: patient was not received from another setting of care. Onset of symptoms was August 2018. Risk Assessment: Do you want to hurt yourself or someone else? Patient reports no desire to harm self or others. Initial Sepsis Screen: Does the patient meet any 2 criteria? No. Patient's initial sepsis screen is negative. Does the patient have a suspected source of infection? No. Patient's initial sepsis screen is negative. Care prior to arrival: None. 18:09 Method Of Arrival: Wheelchair aj1 18:09 Acuity: LEIGH 3 aj1 Triage Assessment: 18:14 General: Appears in no apparent distress. uncomfortable, Behavior is calm, cooperative, aj1 appropriate for age. Pain: Complains of pain in left lateral ankle and neck Pain currently is 9 out of 10 on a pain scale. Neuro: Level of Consciousness is awake, alert, obeys commands. Cardiovascular: Patient's skin is warm and dry. Respiratory: Airway is patent Respiratory effort is even, unlabored, Respiratory pattern is regular, symmetrical. 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 - Social history:: Smoking status: Patient uses tobacco products, smokes one-half pack cigarettes per day. - Ebola Screening: : Patient denies travel to an Ebola-affected area in the 21 days before illness onset. Screenin:30 Abuse screen: Denies threats or abuse. Denies injuries from another. Nutritional sg screening: No deficits noted. Tuberculosis screening: No symptoms or risk factors identified. Possible symptoms: None. Fall Risk None identified. Assessment: 18:38 General: Appears in no apparent distress. well groomed, well developed, well nourished, sg Behavior is calm, cooperative, appropriate for age. Pain: Complains of pain in neck and left lateral ankle Quality of pain is described as aching. Neuro: Level of Consciousness is awake, alert, obeys commands, Oriented to person, place, time, situation, Returns Supervisor are equal bilaterally Moves all extremities. Full function Gait is steady. Cardiovascular: Patient's skin is warm and dry. Chest pain is denied. Respiratory: Airway is patent Respiratory effort is even, unlabored, Respiratory pattern is regular, symmetrical. GI: Abdomen is flat, non-distended. : No signs and/or symptoms were reported regarding the genitourinary system. EENT: No signs and/or symptoms were reported regarding the EENT system. Derm: Skin is pink, warm \\T\\ dry. Musculoskeletal: Circulation, motion, and sensation intact. Range of motion: intact in all extremities, Swelling absent. 18:40 Reassessment: xray at bedside at this time. sg 19:31 General: Appears in no apparent distress. uncomfortable, Behavior is calm, cooperative, jd3 appropriate for age. Pain: Complains of pain in left ankle and back of neck Quality of pain is described as aching. Neuro: Level of Consciousness is awake, alert, obeys commands, Oriented to person, place, time, situation. Cardiovascular: Capillary refill < 3 seconds Patient's skin is warm and dry. Respiratory: Airway is patent Respiratory effort is even, unlabored, Respiratory pattern is regular, symmetrical. GI: No signs and/or symptoms were reported involving the gastrointestinal system. : No signs and/or symptoms were reported regarding the genitourinary system. EENT: No signs and/or symptoms were reported regarding the EENT system. Derm: Skin is intact, Skin is dry, Skin is normal, Skin temperature is warm. Musculoskeletal: Circulation, motion, and sensation intact. Range of motion: patient reports decreased range of motion of left ankle. Swelling absent. 20:08 Reassessment: Patient appears in no apparent distress at this time. Patient and/or jd3 family updated on plan of care and expected duration. Pain level reassessed. Patient is alert, oriented x 3, equal unlabored respirations, skin warm/dry/pink. Patient states feeling better. Vital Signs: 18:14 BP 132 / 77; Pulse 89; Resp 18; Temp 97.1; Pulse Ox 100% on R/A; Weight 103.42 kg (R); aj1 Height 5 ft. 11 in. (180.34 cm) (R); Pain 9/10; 20:09 Pulse 87; Resp 19 S; Pulse Ox 100% on R/A; Pain 5/10; jd3 18:14 Body Mass Index 31.80 (103.42 kg, 180.34 cm) aj ED Course: 18:04 Patient arrived in ED. as 18:11 Triage completed. aj1 18:14 Arm band placed on Patient placed in an exam room. [facility] 18:18 Bryon Cano PA is PHCP. [facility] 18:18 London Caruso MD is Attending Physician. [facility] 18:30 No provider procedures requiring assistance completed. Patient did not have IV access sg during this emergency room visit. 18:34 Oliver Jackson, RN is Primary Nurse. sg 18:[address] Scan. Awaiting radiology results. sg 18:47 Foot Left 3 View In Process Unspecified. EDMS 19:06 CT Head C Spine In Process Unspecified. EDMS 19:46 Oliver Flannery MD is Referral Physician. jmm 19:46 Cesar Olivo MD is Referral Physician. jmm 20:08 Patient has correct armband on for positive identification. Bed in low position. Call jd3 light in reach. Side rails up X 1. Adult w/ patient. Administered Medications: 18:38 Drug: [place] 5 mg-325 mg 1 tabs Route: PO; sg 19:30 Follow up: Response: No adverse reaction; Pain is decreased jd3 Outcome: 19:47 Discharge ordered by . louis 20:08 Discharged to home ambulatory, with family. jd3 20:08 Condition: stable 20:08 Discharge instructions given to patient, family, Instructed on discharge instructions, follow up and referral plans. medication usage, Demonstrated understanding of instructions, follow-up care, medications, Prescriptions given X 1. 20:10 Patient left the ED. jd3 Signatures: Dispatcher [employer] EDKacy Clay RN RN aj1 Oliver Jackson RN RN Bryon Hickman PA PA jmm Martinez, Amelia as Davies, Jonathon RN RN jd3 Corrections: (The following items were deleted from the chart) 18:15 18:09 Presenting complaint: Patient states: "My left ankle I can barely walk on it. I aj1 fell on it a long time ago, but now out of nowhere I can't put any pressure on it, its extremely painful and then my neck I have 4 screws in my neck and the cadaver bone has collapsed and now I feel like someone is taking a nail and hammering in the back of my neck" Reports that she has been having this pain for the past 3 to 4 days aj1
--- NOTE | 2018-09-27 19:48 | EDPHYS ---
Physician Documentation [facility] Name: Gauri Juares Age: 42 yrs Sex: Female : 1975 Arrival Date: 09/27/2018 Time: 18:04 Bed 7 Private MD: ED Physician London Caruso HPI: 09/27 18:29 This 42 yrs old Female presents to ER via Wheelchair with complaints of Ankle jmm Pain. 18:29 The patient's problem is reported as paresthesias, in left side of face. Onset: The jmm symptoms/episode began/occurred gradually, 1 week(s) ago. Duration: This was a single incident. The symptoms are alleviated by nothing. The symptoms are aggravated by nothing. This is a 42 year old female with a history of depression, chronic pain that presents to the ED with complaints of left sided facial numbness for the past week along with headache radiating from the left side of the base of her scalp. Patient also complains of left foot/ankle pain beginning 3 days ago. Patient denies recent injury. . 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 - Social history:: Smoking status: Patient uses tobacco products, smokes one-half pack cigarettes per day. - Ebola Screening: : Patient denies travel to an Ebola-affected area in the 21 days before illness onset. ROS: 18:29 Constitutional: Negative for fever, chills, and weight loss, Cardiovascular: Negative jmm for chest pain, palpitations, and edema, Respiratory: Negative for shortness of breath, cough, wheezing, and pleuritic chest pain. 18:29 MS/extremity: Positive for pain. 18:29 Neuro: Positive for numbness. 18:29 All other systems are negative. Exam: 18:29 Radiologist reports: negative jmm 18:29 Constitutional: This is a well developed, well nourished patient who is awake, alert, and in no acute distress. Head/Face: atraumatic. Eyes: EOMI, no conjunctival erythema appreciated ENT: Moist Mucus Membranes Neck: Trachea midline, Supple Chest/axilla: Normal chest wall appearance and motion. Cardiovascular: Regular rate and rhythm. No edema appreciated Respiratory: Normal respirations, no respiratory distress appreciated Abdomen/GI: Non distended, soft Back: Normal ROM Skin: General appearance color normal 18:29 Musculoskeletal/extremity: pain elicited on palpation of the base of the 5th metatarsal, full dorsalis pulse, NVI. 18:29 Skin: Appearance: Color: normal in color. 18:29 Neuro: Orientation: is normal, Mentation: is normal, Memory: is normal. 18:29 Psych: Behavior/mood is pleasant, cooperative. Vital Signs: 18:14 BP 132 / 77; Pulse 89; Resp 18; Temp 97.1; Pulse Ox 100% on R/A; Weight 103.42 kg (R); aj1 Height 5 ft. 11 in. (180.34 cm) (R); Pain 9/10; 20:09 Pulse 87; Resp 19 S; Pulse Ox 100% on R/A; Pain 5/10; jd3 18:14 Body Mass Index 31.80 (103.42 kg, 180.34 cm) aj1 MDM: 18:29 Patient medically screened. [facility] 19:44 Data reviewed: vital signs, nurses notes. [facility] 19:44 Counseling: I had a detailed discussion with the patient and/or guardian regarding: the [facility] historical points, exam findings, and any diagnostic results supporting the discharge/admit diagnosis, radiology results, the need for outpatient follow up, to return to the emergency department if symptoms worsen or persist or if there are any questions or concerns that arise at home. ED course: Imaging studies negative. Patient is advised to follow up with Dr. Zamudio due to the paresthesias. Patient also advised to follow up with orthopedics for further evaluation of her foot and ankle. Patient understood and agrees with the plan of care. . 09/27 18:31 Order name: CT Head C Spine; Complete Time: 19:28 [facility] 09/27 18:47 Order name: Foot Left 3 View; Complete Time: 19:19 EDMS Administered Medications: 18:38 Drug: [place] 5 mg-325 mg 1 tabs Route: PO; sg 19:30 Follow up: Response: No adverse reaction; Pain is decreased jd3 Disposition: 09/28 06:59 Co-signature as Attending Physician, London Caruso MD. rn Disposition: 09/27/18 19:47 Discharged to Home. Impression: Other sprain of foot, Paresthesia of skin, Headache. - Condition is Stable. - Discharge Instructions: Foot Sprain, General Headache Without Cause, Paresthesia. - Prescriptions for Tylenol- Codeine #3 300-30 mg Oral Tablet - take 1 tablet by ORAL route every 6 hours As needed; 6 tablet. - Medication Reconciliation Form, Thank You Letter, Antibiotic Education, Prescription Opioid Use, Work release form form. - Follow up: Oliver Flannery MD; When: 2 - 3 days; Reason: Recheck today's complaints, Continuance of care, Re-evaluation by your physician. Follow up: Cesar Olivo MD; When: 2 - 3 days; Reason: Recheck today's complaints, Continuance of care, Re-evaluation by your physician. Signatures: Dispatcher [employer] [facility] Kacy Pittman RN RN aj1 Oliver Jackson RN RN Bryon Hickman PA PA [facility] London Caruso MD MD rn Davies, Jonathon, RN RN jd3 Corrections: (The following items were deleted from the chart) 09/27 18:47 18:32 Foot Right 3 View+[email or web address] ordered. [facility] 20:10 19:47 09/27/2018 19:47 Discharged to Home. Impression: Other sprain of foot; jd3 Paresthesia of skin; Headache. Condition is Stable. Forms are Medication Reconciliation Form, Thank You Letter, Antibiotic Education, Prescription Opioid Use. Follow up: Oliver Flannery; When: 2 - 3 days; Reason: Recheck today's complaints, Continuance of care, Re-evaluation by your physician. Follow up: Dr. Cesar Olivo; When: 2 - 3 days; Reason: Recheck today's complaints, Continuance of care, Re-evaluation by your physician. [facility]
[2018-09-27 20:24] VITALS: BP 132/77; TEMP 97.1; O2SAT 100
== END 2018-09-27 20:10 | disposition home or self-care (01) ==
LOC: ER 18:03
DX: R20.2 Paresthesia of skin (principal); S93.692A Other sprain of left foot, initial encounter; F32.9 Major depressive disorder, single episode, unspecified; F17.210 Nicotine dependence, cigarettes, uncomplicated; Z88.6 Allergy status to analgesic agent; Z91.040 Latex allergy status; Z91.048 Other nonmedicinal substance allergy status
CPT/HCPCS: 70450; 72125; 99283

== ENCOUNTER 2019-04-14 20:31 | Emergency (ER) | payer OTHER ==
--- OUTSIDE RECORDS SUMMARY | 2019-04-14 20:34 | XMS REPORT ---
:1975 [facility] Address [address] [place] [address] Dr. Cook [address] [place] [id number] Care Team Providers Name Role Phone Unavailable Unavailable Unavailable Problems This patient has no known problems. Allergies, Adverse Reactions, Alerts This patient has no known allergies or adverse reactions. Medications This patient has no known medications.
[2019-04-14] MEDS ORDERED: ONDANSETRON 4 MG/2 ML VIAL ONE (21:01)
[2019-04-14] MEDS ORDERED: KETOROLAC 30 MG/ML INJ ONE (21:01)
[2019-04-14] MEDS ORDERED: NA CHLORIDE 0.9% 1,000 ML ONE (21:01)
[2019-04-14 21:33] LABS: Absolute Lymphocytes (CBC) 2.3 K/uL (0.7-4.9); Basophils % 0.6 % (0-1.3); Hematocrit 31.5 % (36.0-45.0); Lymphocytes % 16.6 % (15.3-44.8); MPV 7.6 fL (7.6-11.3); RBC Red Blood Cell Count 4.78 M/uL (3.86-4.86)
[2019-04-14 21:41] LABS: Albumin 3.2 g/dL (3.4-5.0); Bilirubin Total 0.3 mg/dL (0.2-1.0); Potassium 4.7 mmol/L (3.5-5.1); Protein, Total 7.2 g/dL (6.4-8.2)
[2019-04-14 21:43] LABS: Urine Blood NEGATIVE (NEG); Urine Glucose NEGATIVE (NEG); Urine Protein NEGATIVE (NEG)
[2019-04-14] MEDS ORDERED: HYDROCODONE/APAP 5/325 MG TAB ONE (21:47)
[2019-04-14 21:52] LABS: Urine Bacteria >50 /HPF (<20); Urine Culture Reflex Order NOT NEEDED; Urine Mucus 1+ /HPF (NONE SEEN); Urine RBC <5 /HPF (NONE SEEN)
[2019-04-14] MEDS ORDERED: CEFTRIAXONE/SWI 1gm 1 GM/10 ML SYR ONE (21:53)
--- NOTE | 2019-04-14 22:42 | ER ---
Nurse's Notes [facility] Name: Gauri Juares Age: 43 yrs Sex: Female : 1975 Arrival Date: 04/14/2019 Time: 20:33 Bed 14 Private MD: Diagnosis: Urinary tract infection, site not specified Presentation: 04/14 20:53 Presenting complaint: Patient states: L flank pain that radiates to the lower abdominal ca1 area x 3-4 days. Reports chills, nausea and dysuria. Denies vomiting, diarrhea and fever. Transition of care: patient was not received from another setting of care. Onset of symptoms was April 14, 2019. Risk Assessment: Do you want to hurt yourself or someone else? Patient reports no desire to harm self or others. Initial Sepsis Screen: Does the patient meet any 2 criteria? No. Patient's initial sepsis screen is negative. Does the patient have a suspected source of infection? No. Patient's initial sepsis screen is negative. Care prior to arrival: None. 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 - Social history:: Smoking status: Patient uses tobacco products, smokes one-half pack cigarettes per day. - Ebola Screening: : Patient negative for fever greater than or equal to 101.5 degrees Fahrenheit, and additional compatible Ebola Virus Disease symptoms Patient denies exposure to infectious person Patient denies travel to an Ebola-affected area in the 21 days before illness onset No symptoms or risks identified at this time. Screenin:00 Abuse screen: Denies threats or abuse. Nutritional screening: No deficits noted. jb4 Tuberculosis screening: No symptoms or risk factors identified. Fall Risk None identified. Assessment: 21:00 General: Appears in no apparent distress. uncomfortable, Behavior is calm, cooperative, jb4 appropriate for age. Pain: Complains of pain in low back area Pain does not radiate. Pain currently is 9 out of 10 on a pain scale. Quality of pain is described as sharp, stabbing. Neuro: Level of Consciousness is awake, alert, obeys commands, Oriented to person, place, time, situation. Cardiovascular: Patient's skin is warm and dry. Respiratory: Airway is patent Respiratory effort is even, unlabored, Respiratory pattern is regular, symmetrical. GI: No signs and/or symptoms were reported involving the gastrointestinal system. : Reports burning with urination. EENT: No signs and/or symptoms were reported regarding the EENT system. Derm: Skin is intact, Skin is pink, warm \T\ dry. Musculoskeletal: Circulation, motion, and sensation intact. Range of motion: intact in all extremities. 22:00 Reassessment: Patient appears in no apparent distress at this time. Patient and/or jb4 family updated on plan of care and expected duration. Pain level reassessed. Patient is alert, oriented x 3, equal unlabored respirations, skin warm/dry/pink. Patient states feeling better. 23:04 Reassessment: Patient appears in no apparent distress at this time. Patient and/or jb4 family updated on plan of care and expected duration. Pain level reassessed. Patient is alert, oriented x 3, equal unlabored respirations, skin warm/dry/pink. PT verbalized understanding of d/c and follow up instructions, questions addressed. ambulated out of ED with steady gait. Vital Signs: 20:56 BP 101 / 76; Pulse 80; Resp 16 S; Temp 98.4(O); Pulse Ox 100% on R/A; Weight 90.72 kg ca1 (R); Height 5 ft. 11 in. (180.34 cm) (R); Pain 8/10; 22:00 BP 110 / 57; Pulse 70; Resp 16; Pulse Ox 100% on R/A; jb4 23:00 BP 108 / 59; Pulse 60; Resp 16; Pulse Ox 100% on R/A; jb4 20:56 Body Mass Index 27.89 (90.72 kg, 180.34 cm) ca1 ED Course: 20:33 Patient arrived in ED. cl3 20:46 John London MD is Attending Physician. ps1 20:55 Triage completed. ca1 20:55 Kvng Santos, RN is Primary Nurse. jb4 20:56 Arm band placed on right wrist. ca1 21:00 Patient has correct armband on for positive identification. Placed in gown. Bed in low jb4 position. Call light in reach. Side rails up X 1. Pulse ox on. NIBP on. 21:50 CT Abd/Pelvis - Without Contrast In Process Unspecified. EDMS 23:06 No provider procedures requiring assistance completed. IV discontinued, intact, jb4 bleeding controlled, No redness/swelling at site. Pressure dressing applied. Administered Medications: 21:01 Drug: Zofran 4 mg Route: IVP; Site: right antecubital; jb4 21:56 Follow up: Response: No adverse reaction; Nausea is decreased jb4 21:03 Drug: TORadol - Ketorolac 15 mg Route: IVP; Site: right antecubital; jb4 21:56 Follow up: Response: No adverse reaction; Pain is decreased jb4 21:10 Drug: NS 0.9% 1000 ml Route: IV; Rate: 1 bolus; Site: right antecubital; jb4 22:00 Follow up: Response: No adverse reaction; IV Status: Completed infusion; IV Intake: jb4 1000ml 21:48 Drug: Villanueva 5 mg-325 mg 1 tabs {Note: Rass score 0.} Route: PO; jb4 23:01 Follow up: Response: No adverse reaction; Pain is decreased; RASS: Alert and Calm (0) jb4 21:53 Drug: Rocephin 1 grams Route: IV; Rate: bolus; Site: right antecubital; jb4 21:56 Follow up: Response: No adverse reaction; IV Status: Completed infusion; IV Intake: [id number] Intake: 21:56 IV: 10ml; Total: 10ml. jb4 22:00 IV: 1000ml; Total: 1010ml. jb4 Outcome: 22:42 Discharge ordered by . tw4 23:06 Discharged to home ambulatory. jb4 23:06 Condition: stable 23:06 Discharge instructions given to patient, Instructed on discharge instructions, follow up and referral plans. medication usage, Demonstrated understanding of instructions, follow-up care, medications, Prescriptions given X 2. 23:08 Patient left the ED. jb4 Signatures: Dispatcher [employer] EDMD Kvng Santos, RN RN jb4 John London MD MD ps1 Jitendra Nina MD MD tw4 Chanel Pierre RN RN ca1 Tobi Erickson cl3
--- NOTE | 2019-04-14 22:43 | EDPHYS ---
Physician Documentation [facility] Name: Gauri Juares Age: 43 yrs Sex: Female : 1975 Arrival Date: 04/14/2019 Time: 20:33 Bed 14 Private MD: ED Physician John London HPI: 04/14 20:52 This 43 yrs old Female presents to ER via Unassigned with complaints of Pain ps1 With Urination left flank pain. 20:52 patient has dysuria, frequency, fever, chills for last couple of days. Patient states ps1 that she additionally has left CVA tenderness with radiation to groin. Associated with nausea and vomiting. No history of kidney stones. Hx of gastric bypass remotely. LMP 2 weeks ago. Pain rated as moderate. Took azo for symptoms without remission. . RN PARALEGAL: 20:56 LMP 03/2019 ca1 Historical: - Allergies: 20:56 Aspirin; ca1 20:56 Latex, Natural Rubber; ca1 - Home Meds: 20:56 venlafaxine Oral [Active]; gabapentin Oral [Active]; ca1 - PMHx: 20:56 Arthritis; Cholelithiasis; Depression; PE; ca1 - PSHx: 20:56 screws and cadaver bone in neck; ca1 - Immunization history:: Adult Immunizations up to date, Flu vaccine is not up to date. - Social history:: Smoking status: Patient uses tobacco products, smokes one-half pack cigarettes per day. - Ebola Screening: : Patient negative for fever greater than or equal to 101.5 degrees Fahrenheit, and additional compatible Ebola Virus Disease symptoms Patient denies exposure to infectious person Patient denies travel to an Ebola-affected area in the 21 days before illness onset No symptoms or risks identified at this time. ROS: 20:52 Eyes: Negative for injury, pain, redness, and discharge, ENT: Negative for injury, ps1 pain, and discharge, Cardiovascular: Negative for chest pain, palpitations, and edema, Respiratory: Negative for shortness of breath, cough, wheezing, and pleuritic chest pain, Skin: Negative for injury, rash, and discoloration, Neuro: Negative for headache, weakness, numbness, tingling, and seizure, Psych: Negative for depression, anxiety, suicide ideation, homicidal ideation, and hallucinations. 20:52 Constitutional: Positive for body aches, chills, fatigue, fever. 20:52 Abdomen/GI: Positive for nausea and vomiting. 20:52 : Positive for urinary symptoms, flank pain, urinary frequency. Exam: 20:52 Constitutional: This is a well developed, well nourished patient who is awake, alert, ps1 and in no acute distress. Head/Face: Normocephalic, atraumatic. Eyes: Pupils equal round and reactive to light, extra-ocular motions intact. Lids and lashes normal. Conjunctiva and sclera are non-icteric and not injected. Chest/axilla: Normal chest wall appearance and motion. Nontender with no deformity. No lesions are appreciated. Cardiovascular: Regular rate and rhythm. No gallops, murmurs, or rubs. Normal PMI, no JVD. No pulse deficits. Respiratory: Lungs have equal breath sounds bilaterally, clear to auscultation and percussion. No rales, rhonchi or wheezes noted. No increased work of breathing, no retractions or nasal flaring. Abdomen/GI: Soft, non-tender, with normal bowel sounds. No distension or tympany. No guarding or rebound. No evidence of tenderness throughout. Skin: Warm, dry with normal turgor. Normal color with no rashes, no lesions, and no evidence of cellulitis. MS/ Extremity: Pulses equal, no cyanosis. Neurovascular intact. Full, normal range of motion. Vital Signs: 20:56 BP 101 / 76; Pulse 80; Resp 16 S; Temp 98.4(O); Pulse Ox 100% on R/A; Weight 90.72 kg ca1 (R); Height 5 ft. 11 in. (180.34 cm) (R); Pain 8/10; 22:00 BP 110 / 57; Pulse 70; Resp 16; Pulse Ox 100% on R/A; jb4 23:00 BP 108 / 59; Pulse 60; Resp 16; Pulse Ox 100% on R/A; jb4 20:56 Body Mass Index 27.89 (90.72 kg, 180.34 cm) ca1 MDM: 20:57 Patient medically screened. ps1 04/14 20:46 Order name: Urine Microscopic Only; Complete Time: 21:54 ps1 04/14 20:46 Order name: Urine Culture 04/14 20:51 Order name: CBC with Diff 04/14 20:51 Order name: CMP; Complete Time: 21:42 ps1 04/14 21:07 Order name: Urine Dipstick--Ancillary (enter results); Complete Time: 21:46 mw2 04/14 21:07 Order name: Urine --Ancillary (enter results); Complete Time: 21:46 mw2 04/14 20:46 Order name: Urine Dipstick-Ancillary (obtain specimen); Complete Time: 21:28 ps1 04/14 20:51 Order name: CT Abd/Pelvis - Without Contrast ps1 04/14 21:36 Order name: CBC Smear Scan EDMS Administered Medications: 21:01 Drug: Zofran 4 mg Route: IVP; Site: right antecubital; 4 21:56 Follow up: Response: No adverse reaction; Nausea is decreased jb4 21:03 Drug: TORadol - Ketorolac 15 mg Route: IVP; Site: right antecubital; 4 21:56 Follow up: Response: No adverse reaction; Pain is decreased 4 21:10 Drug: NS 0.9% 1000 ml Route: IV; Rate: 1 bolus; Site: right antecubital; 4 22:00 Follow up: Response: No adverse reaction; IV Status: Completed infusion; IV Intake: jb4 1000ml 21:48 Drug: Pisek 5 mg-325 mg 1 tabs {Note: Rass score 0.} Route: PO; 4 23:01 Follow up: Response: No adverse reaction; Pain is decreased; RASS: Alert and Calm (0) [facility] 21:53 Drug: Rocephin 1 grams Route: IV; Rate: bolus; Site: right antecubital; 4 21:56 Follow up: Response: No adverse reaction; IV Status: Completed infusion; IV Intake: [id number] Disposition: 04/14/19 22:42 Discharged to Home. Impression: Urinary tract infection, site not specified. - Condition is Stable. - Discharge Instructions: Urinary Tract Infection, Adult. - Prescriptions for Pyridium 200 mg Oral Tablet - take 1 tablet by ORAL route every 8 hours for 3 days; 9 tablet. Macrobid 100 mg Oral Capsule - take 1 capsule by ORAL route every 12 hours for 10 days; 20 capsule. - Medication Reconciliation Form, Thank You Letter, Antibiotic Education, Prescription Opioid Use form. - Follow up: Private Physician; When: Upon discharge from the Emergency Department; Reason: Recheck today's complaints, Continuance of care. - Problem is new. - Symptoms have improved. Signatures: Dispatcher [employer] EDKvng Polk RN RN jb4 John London MD MD ps1 Jitendra Nina MD MD tw4 Chanel Pierre RN RN ca1 Corrections: (The following items were deleted from the chart) 23:08 22:42 04/14/2019 22:42 Discharged to Home. Impression: Urinary tract infection, site jb4 not specified. Condition is Stable. Forms are Medication Reconciliation Form, Thank You Letter, Antibiotic Education, Prescription Opioid Use. Follow up: Private Physician; When: Upon discharge from the Emergency Department; Reason: Recheck today's complaints, Continuance of care. Problem is new. Symptoms have improved. tw4
[2019-04-14 23:13] VITALS: TEMP 98.4; O2SAT 100
[2019-04-14 23:15] VITALS: BP 108/59
[2019-04-14 23:42] LABS: Anisocytosis 1+; Blood Morphology Comment NOTED (NOT SEEN); Hypochromasia 3+; Platelet Estimate ADEQ; Urine White Blood Cell Casts OK
--- NOTE | 2019-04-15 12:13 | RAD REPORT ---
EXAM DESCRIPTION: Abdomen Pelvis Wo Contrast CLINICAL HISTORY: Cva tenderness left / stone. Hx of gastric bypass TECHNIQUE: Contiguous axial images obtained through the abdomen and pelvis without IV contrast. Phil nal and sagittal reformatted images were provided. This exam was performed according to our departmental dose-optimization program, which includes autom ated exposure control, adjustment of the mA and/or kV according to patient size and/or use of iterati ve reconstruction technique. COMPARISON: None available for comparison. FINDINGS: Lung bases: Right lower lobe calcified granuloma. Liver: Grossly unremarkable Gallbladder and biliary system: Prior cholecystectomy. Intrahepatic and extrahepatic biliary dilatati on. The common duct measures up to 11 mm in maximum diameter. Pancreas: Grossly unremarkable Spleen: Grossly unremarkable Adrenals: Unremarkable Kidneys: 10 mm cortical cyst at the posterior midpole on the right. No calculi. No hydronephrosis. Bowel: Patient is status post gastric bypass. The gastric pouch, gastric remnant, Paulino-en-Y limb, liset iopancreatic limb and jejunal jejunal anastomosis appear normal. Moderate stool. No obstruction. No a ppreciable mucosal thickening. Appendix: Normal caliber appendix. No findings to suggest acute appendicitis. Urinary bladder: Unremarkable Reproductive: Unremarkable as visualized Lymph nodes: No pathologically enlarged lymph nodes. Peritoneum: No focal fluid collection. No free air. Vessels: No abdominal aortic aneurysm. Abdominal wall: Unremarkable Bones: Unremarkable IMPRESSION: 1. No renal, ureteral or bladder calculi. No evidence for renal obstruction. 2. Other findings as above. Electronically signed by: Bri Mukherjee MD 04/14/2019 10:21 PM FOOD TECHNOLOGIST Due to temporary technical issues with the PACS/Fluency reporting system, reports are being signed by the in house radiologist as a courtesy to ensure prompt reporting. The interpreting radiologist is f ully responsible for the content of the report.
== END 2019-04-14 23:08 | disposition home or self-care (01) ==
LOC: ER 20:31
DX: N39.0 Urinary tract infection, site not specified (principal); F32.9 Major depressive disorder, single episode, unspecified; F17.210 Nicotine dependence, cigarettes, uncomplicated; Z88.6 Allergy status to analgesic agent; Z91.040 Latex allergy status; Z91.048 Other nonmedicinal substance allergy status
CPT/HCPCS: 96361; 87088; 85025; 87086; 36415; 81025; 80053; 74176; 96375; 96374; 99284; J0696; J7030; J2405; 81003; 81015